=== PATIENT | male | born 1980 | race Hispanic/Latino ===

== ENCOUNTER 2017-04-10 00:38 | Emergency (ER) | payer OTHER ==
[2017-04-10 00:46] VITALS: BP 124/85; PULSE 61; RESP 20; O2SAT 100
--- NOTE | 2017-04-10 01:05 | ED.REPORT ---
HPI-Extremity Problem Lower Date of Service Apr 10, 2017 ED Provider: Bronson Burr MD Pt is an otherwise healthy 36 year old male who presents to the ED complaining of left knee pain onset 2 days ago. He c/o associated left knee swelling. Pt denies any other symptoms. He reports that a cart full of rocks (approximately 400lbs) fell and landed on his knee 2 days ago while at work. Pt states that it is painful to walk secondary to the injury. [id number] medicine was provided at work with minimal relief. Per pt, the pain is exacerbated with walking, bending his left knee, and after sitting for awhile and standing. Nursing Notes Stated Complaint: L KNEE PAIN Chief Complaint: Extremity Trauma Nursing Notes Reviewed: Yes Allergies: Coded Allergies: No Known Allergies (Unverified , 04/10/17) General Time Seen by MD: 01:04 Chief Complaint Knee injury left Hx Obtained From: Patient Arrived By: Walk-in Onset Occurred: 2 days ago Symptom Duration: Since onset Caused by: Accidental Location: : Knee left Quality: Painful Severity: Current: Moderate Severity: Maximum: Moderate Immunizations: Tetanus not up to date Recent Healthcare: No recent doctor visit, No recent hospitalization Similar Sx Previous: No Past Medical History Past Medical History Healthy Past Surgical History Denies Smoking History Unknown if Ever Smoker Social History Other Social History: Good social support Ambulatory Status Independent Review of Systems + Difficulty walking secondary to pain Constitutional: Denies: Fever Musculoskeletal: Reports: Extremity pain (left knee), Extremity swelling Complete sys rev & neg: except as marked. Respiratory: Denies: Non-productive cough, Shortness of breath Physical Exam Initial Vital Signs Vital Signs (First) Date Time Temp Pulse Resp B/P Pulse Ox O2 Delivery O2 Flow Rate FiO2 04/10/17 00:46 37.1 61 20 124/85 100 Room Air Initial VS: Reviewed Head / Eyes: Atraumatic, Normocephalic Neck: Supple, Full range of motion Respiratory: Breath sounds normal, Clear to auscultation, No respiratory distress Cardiovascular: Regular rate & rhythm, Heart sounds normal, Intact distal pulses Abdomen / GI: Soft, Non-tender Upper Extremities: Vascular intact, Neuro intact Skin: Warm, Dry, No cyanosis Neurologic: Alert, Oriented, Nonfocal Psychiatric: Mood/affect normal, Behavior normal LOWER EXTREMITIES: Knee swollen. Diffusely tender of distal femur. No effusion. Difficult to examine motion due because of guarding secondary to the pain. Ankle / Foot: Atraumatic, Full range of motion General/Constitutional: Awake, Alert, Cooperative Interpretation & Diagnostics X-Ray Interpretation Xray Interpretation: No acute abnormalities/fractures are noted Study Performed: 3 view X-Ray Ordered: Knee left Interpretation / Wet Read by: Wet read ED physician Re-Eval/Medical Decision Source of Hx: Old records Re-Evaluation/Progress : Time of Eval: 02:33 Re-Evaluation/Progress Note: Pt rechecked. Informed pt of plan for discharge. Pt understands and agrees with plan for discharge. F/U instructions and RTER warnings given. All questions addressed. Counseled Regarding: Diagnosis, Need for follow-up, When/why to return to ED Discharge & Departure Impression: Primary Impression: Contusion of knee, left Ruled Out: Knee fracture, left Disposition: Home Discharge Condition All VS Reviewed: Yes Condition: Stable Patient Instructions: Contusion in Adults (ED) Additional Instructions: Thank you for entrusting us with your care. Your x-ray is reassuring. You have a knee contusion. You were provided a prescription for an anti-inflammatory. Take it as directed for your pain. Follow up with the referral orthopedics if your symptoms do not improve in 1 week. Return to the Emergency Department for any new or worsening symptoms. Radha por confiarnos sky cuidado. Sky radiografa es tranquilizador. Tiene joanna contusin de rodilla. Se proporciona joanna receta para un antiinflamatorio. Tmelo everton se indica para el dolor. Seguimiento con la ortopedia de referencia si shabana sntomas no mejoran en 1 semana. Volver al Departamento de emergencia para cualquier sntoma nuevo o que empeora. Referrals: Hal Barker MD Scribe Attestation Portions of this note were transcribed by Kaila Montoya. I, Dr. Burr personally performed the history, physical exam and medical decision-making; I reviewed and confirmed the accuracy of the information in the transcribed note. Signed by: Jerry Bailey, 04/09/17. copies to: Hal Barker MD, Gary R DO Apr 10, 2017 01:05 Kaila Ann Apr 10, 2017 01:08
[2017-04-10 03:00] VITALS: BP 121/83; PULSE 64; RESP 18; O2SAT 100
--- NOTE | 2017-04-10 09:54 | DRSVH ---
PROCEDURE: X-RAY LEFT KNEE, THREE VIEWS ([id number]) INDICATIONS: LEFT knee injury AT WORK TECHNIQUE: 3 views of the knee were acquired. COMPARISON: None. FINDINGS: Bones: No fractures or dislocations. No suspicious bony lesions. Soft tissues: Large knee joint effusion and/or peripatellar soft tissue swelling. IMPRESSION: Large joint effusion and prepatellar soft tissue swelling. Internal derangement cannot be excluded. No fracture seen. If there is continued pain, followup exam or additional imaging such as MRI or CT could be performed for further assessment. Dictated by: Collin Lai [facility] Interpreted: Bret Almanzar MD on 04/10/2017 at 8:55 Approved by: Bret Almanzar M.D. on 04/10/2017 at 9:51
== END 2017-04-10 03:01 | disposition home or self-care (01) ==
LOC: SED 00:38
DX: S80.02XA Contusion of left knee, initial encounter (principal); W22.8XXA Striking against or struck by other objects, initial encounter; Y93.89 Activity, other specified; Y92.69 Other specified industrial and construction area as the place of occurrence of the external cause; Y99.0 Civilian activity done for income or pay
CPT/HCPCS: 73562; 96372; 99284; J1885